=== PATIENT | female | born 1960 | race Hispanic/Latino ===

== ENCOUNTER 2022-12-19 11:46 | Inpatient (IN) | payer OTHER ==
[~2022-12-19] VITALS: Ht 162.6 cm; Wt 69.4 kg
[2022-12-19] VITALS (32 sets, daily range): BP systolic 72–169; BP diastolic 29–86
[2022-12-19] MEDS ORDERED: LIDOCAINE HCL 400MG/20ML VIAL ONE ×3 (12:23→18:52)
[2022-12-19] MEDS ORDERED: VERAPAMIL HCL 2.5 MG/ML VIAL ONE (12:24)
[2022-12-19] MEDS ORDERED: MIDAZOLAM HCL 1 MG/ML 2ML VIAL ONE ×2 (12:24→17:49)
[2022-12-19] MEDS ORDERED: FENTANYL CITRATE PF 50 MCG/1 ML 2ML VIAL ONE ×2 (12:24→17:50)
[2022-12-19] MEDS ORDERED: IOHEXOL 350 MG/ML 100ML INFUS..BTL IV ONE (12:24)
[2022-12-19] MEDS ORDERED: HEPARIN 10,000 UNIT/10ML (1,000 UNIT/ML) VIAL ONE (12:25)
[2022-12-19] MEDS ORDERED: NITROGLYCERIN 50MG VIAL ONE (12:25)
[2022-12-19] MEDS ORDERED: HEPARIN 25,000 UNITS/250ML D5W 250 ML IV ONE (13:16)
[2022-12-19] MEDS ORDERED: NITROGLYCERIN 1GM OINT 1 INCH/1GM TD ONE (13:20)
[2022-12-19] MEDS ORDERED: HEPARIN 25,000 UNITS/250ML D5W 250 ML IV SCH (13:30)
[2022-12-19] MEDS ORDERED: DEXTROSE 50%-WATER 50 ML DISP.SYRIN IV PRN (13:30)
[2022-12-19] MEDS ORDERED: GLUCAGON 1MG KIT 1 MG ML IM PRN (13:30)
[2022-12-19] MEDS ORDERED: ACETAMINOPHEN 500 MG TABLET PO PRN (14:30)
[2022-12-19] MEDS ORDERED: MORPHINE 2 MG SYG IVP PRN (14:30)
[2022-12-19] MEDS ORDERED: EMPA25TA PO (15:13)
[2022-12-19] MEDS ORDERED: METO-391 PO (15:13)
[2022-12-19] MEDS ORDERED: LORA10TA7 PO (15:14)
[2022-12-19] MEDS: INSULIN HUMULIN R 100 UNIT/ML 3ML SQ SCH ×2 (16:30→23:34)
[2022-12-19] MEDS ORDERED: 0.9%NACL 1000ML 1,000 ML IV SCH (17:00)
[2022-12-19 17:25] LABS: BASOPHILS % (AUTO) 0.2 % (0.0-5.0); EOSINOPHILS % (AUTO) 0.2 % (0.0-8.0); HEMATOCRIT 40.7 % (36-48); MEAN CORPUSCULAR HEMOGLOBIN 28.9 pg (27.0-33.0); MEAN CORPUSCULAR HGB CONC 33.2 g/dL (32.0-36.0); MEAN CORPUSCULAR VOLUME 87.2 fL (79-99); MONOCYTES % (AUTO) 2.3 % (3.0-13.0); NEUTROPHILS % (AUTO) 90.8 % (40.0-77.0); PLATELET COUNT (AUTO) 245 K/uL (130-400); RED BLOOD CELL COUNT(AUTO) 4.67 MIL/uL (4.00-5.50); RED CELL DISTRIBUTION WIDTH 13.9 % (11.0-15.5); WHITE BLOOD COUNT (AUTO) 12.4 K/uL (4.8-10.8)
[2022-12-19 17:30] LABS: CREATININE 0.6 mg/dL (0.5-1.5); POTASSIUM 3.9 mmol/L (3.5-5.1)
[2022-12-19 17:31] LABS: PROTHROMBIN TIME 10.9 SEC (9.6-11.6)
[2022-12-19 17:34] LABS: ALBUMIN 3.4 g/dL (3.5-5.0); MAGNESIUM 1.9 mg/dL (1.80-2.40); TOTAL PROTEIN, SERUM 7.1 g/dL (6.0-8.3)
[2022-12-19] MEDS: ONDANSETRON 4MG INJ IVP PRN (17:50)
[2022-12-19 17:51] LABS: PARTIAL THROMBOPLASTIN TIME 107.9 SEC (26.3-35.5)
[2022-12-19] MEDS ORDERED: NITROGLYCERIN 1GM OINT 1 INCH/1GM TD SCH (20:00)
[2022-12-19] MEDS ORDERED: PROMETHAZINE HCL 25 MG/ML 1ML AMPULE IM ONE (23:00)
[2022-12-19 23:53] LABS: CREATININE 0.7 mg/dL (0.5-1.5); MAGNESIUM 2.1 mg/dL (1.80-2.40); PHOSPHORUS 4.2 mg/dL (2.5-4.9); POTASSIUM 3.9 mmol/L (3.5-5.1)
[2022-12-20] VITALS (61 sets, daily range): BP systolic 93–175; BP diastolic 37–87
[2022-12-20] MEDS: ATORVASTATIN 40 MG TABLET PO SCH ×2 (01:18→20:30)
[2022-12-20] MEDS: FAMOTIDINE 20MG TAB PO SCH ×3 (01:18→20:30)
[2022-12-20] MEDS: METOPROLOL TARTRATE 25 MG TAB PO SCH ×3 (01:18→20:30)
[2022-12-20] MEDS: ONDANSETRON 4MG INJ IVP PRN (01:18)
[2022-12-20 01:35] LABS: ABG BASE EXCESS -13.4 mmol/L (-2.0-3.0); ABG HCO3 10.4 mmol/L (21.0-28.0); ABG OXYGEN SATURATION 96.8 % (95.0-99.0); ABG PCO2 21 mmHg (32-45)
[2022-12-20] MEDS ORDERED: 0.9%NACL 1000ML 1,000 ML IV SCH (02:00)
[2022-12-20] MEDS ORDERED: INSULIN REGULAR, HUMAN 3ML 100 UNIT in 0.9%NACL 100ML 100 ML IV SCH ×2 (02:00)
[2022-12-20] MEDS ORDERED: PROMETHAZINE HCL 25 MG/ML 1ML AMPULE IM ONE (02:00)
[2022-12-20] MEDS ORDERED: POTASSIUM CHLORIDE 10% ELIXIR 20 MEQ/15 ML UDCUP PO PRN (02:00)
[2022-12-20] MEDS ORDERED: D5W-1/2 NS/20MEQ KCL 1,000 ML IV SCH (02:00)
[2022-12-20] MEDS ORDERED: MAGNESIUM 2GM PREMIX 50ML 50 ML IV PRN (02:00)
[2022-12-20] MEDS ORDERED: SIMETHICONE 80 MG TAB.CHEW ONE (02:53)
[2022-12-20] MEDS: POTASSIUM CHLORIDE 20MEQ/100ML 100 ML IV PRN ×2 (03:58→09:37)
[2022-12-20] MEDS: DEXTROSE 5 %-0.45 % NACL 1,000 ML IV SCH ×2 (04:18→23:49)
[2022-12-20] MEDS: INSULIN HUMULIN R 100 UNIT/ML 3ML SQ SCH ×4 (05:05→21:00)
[2022-12-20 05:21] LABS: HEMATOCRIT 38.9 % (36-48); MEAN CORPUSCULAR HEMOGLOBIN 28.7 pg (27.0-33.0); MEAN CORPUSCULAR HGB CONC 33.9 g/dL (32.0-36.0); MEAN CORPUSCULAR VOLUME 84.6 fL (79-99); RED BLOOD CELL COUNT(AUTO) 4.6 MIL/uL (4.00-5.50); RED CELL DISTRIBUTION WIDTH 14.1 % (11.0-15.5); WHITE BLOOD COUNT (AUTO) 10.3 K/uL (4.8-10.8)
[2022-12-20 05:28] LABS: HEMOGLOBIN A1C 9.2 % (4.0-6.0)
[2022-12-20 06:05] LABS: BILIRUBIN,DIRECT 0.1 mg/dL (0.0-0.3); CREATININE 0.8 mg/dL (0.5-1.5); MAGNESIUM 1.9 mg/dL (1.80-2.40); POTASSIUM 3.4 mmol/L (3.5-5.1); THYROID STIMULATING HORMONE 1.34 uIU/mL (0.36-3.74); TOTAL PROTEIN, SERUM 6.9 g/dL (6.0-8.3)
[2022-12-20 06:12] LABS: ALBUMIN 3.3 g/dL (3.5-5.0)
[2022-12-20 08:42] LABS: CREATININE 0.6 mg/dL (0.5-1.5); POTASSIUM 3.5 mmol/L (3.5-5.1)
[2022-12-20] MEDS ORDERED: CEFAZOLIN SODIUM 1 GM VIAL IVPB SCH (09:00)
[2022-12-20] MEDS ORDERED: ZOLPIDEM TARTRATE 5 MG TAB PO PRN (09:30)
[2022-12-20] MEDS: ASPIRIN 81MG CHEW TAB PO SCH (09:36)
[2022-12-20] MEDS: LISINOPRIL 5 MG TABLET PO SCH (11:04)
[2022-12-20] MEDS: FUROSEMIDE 20MG VIAL IV SCH ×2 (11:04→22:00)
[2022-12-20] MEDS: AMIODARONE 200 MG TABLET PO SCH ×2 (11:04→20:30)
[2022-12-20 12:24] LABS: CREATININE 0.7 mg/dL (0.5-1.5); POTASSIUM 3.9 mmol/L (3.5-5.1)
[2022-12-20 12:25] LABS: INR 0.96 (0.85-1.15); PROTHROMBIN TIME 10.5 SEC (9.6-11.6)
[2022-12-20 12:26] LABS: PARTIAL THROMBOPLASTIN TIME 59.6 SEC (26.3-35.5)
[2022-12-20] MEDS: INSULIN GLARGINE 100 UNITS/ML 10 ML VIAL SQ SCH ×2 (12:32→21:00)
[2022-12-20 13:24] LABS: APPEARANCE,URINE CLEAR (CLEAR); BILIRUBIN,URINE NEGATIVE (NEGATIVE); COLOR,URINE LIGHT-YELLOW (YELLOW); GLUCOSE, URINE (UA) >=1000 mg/dL (NEGATIVE); KETONES,URINE 150 mg/dL (NEGATIVE); LEUKOCYTE ESTERASE ,URINE NEGATIVE Leu/uL (NEGATIVE); NITRATE,URINE NEGATIVE (NEGATIVE); OCCULT BLOOD,URINE NEGATIVE (NEGATIVE); PROTEIN,URINE 20 mg/dL (NEGATIVE); UROBILINOGEN,URINE 0.2 mg/dL (0.2-1.0)
[2022-12-20 13:32] LABS: MUCUS,URINE RARE LPF (None Seen); RBC,URINE 0-1 /HPF (0-1); SQUAMOUS EPITHELIAL CELL,UR RARE /HPF (0-2)
[2022-12-20 16:15] LABS: ABG BASE EXCESS -9.5 mmol/L (-2.0-3.0); ABG HCO3 13.1 mmol/L (21.0-28.0); ABG OXYGEN SATURATION 96.8 % (95.0-99.0); ABG PCO2 22 mmHg (32-45)
[2022-12-20 16:27] LABS: CREATININE 0.7 mg/dL (0.5-1.5); MAGNESIUM 1.7 mg/dL (1.80-2.40); POTASSIUM 3.4 mmol/L (3.5-5.1)
[2022-12-20] MEDS: KCL 20 MEQ ERTAB PO PRN ×2 (16:31→17:19)
[2022-12-20 20:37] LABS: CREATININE 0.6 mg/dL (0.5-1.5); MAGNESIUM 2.6 mg/dL (1.80-2.40); POTASSIUM 3.8 mmol/L (3.5-5.1)
[2022-12-20] MEDS: KCL 20 MEQ ERTAB PO SCH (21:38)
[2022-12-21] VITALS (70 sets, daily range): BP systolic 84–257; BP diastolic 34–245
[2022-12-21] MEDS ORDERED: DEXTROSE 50%-WATER 50 ML DISP.SYRIN IV PRN ×2 (00:30→10:00)
[2022-12-21] MEDS ORDERED: GLUCAGON 1MG KIT 1 MG ML IM PRN ×2 (00:30→10:00)
[2022-12-21 00:56] LABS: CREATININE 0.8 mg/dL (0.5-1.5); MAGNESIUM 2.2 mg/dL (1.80-2.40); POTASSIUM 3.8 mmol/L (3.5-5.1)
[2022-12-21 05:04] LABS: HEMATOCRIT 36.7 % (36-48); MEAN CORPUSCULAR HEMOGLOBIN 28.5 pg (27.0-33.0); MEAN CORPUSCULAR VOLUME 86.6 fL (79-99); RED BLOOD CELL COUNT(AUTO) 4.24 MIL/uL (4.00-5.50); RED CELL DISTRIBUTION WIDTH 14.6 % (11.0-15.5)
[2022-12-21 05:17] LABS: ALBUMIN 2.9 g/dL (3.5-5.0); CREATININE 0.7 mg/dL (0.5-1.5); POTASSIUM 3.9 mmol/L (3.5-5.1); TOTAL PROTEIN, SERUM 6.3 g/dL (6.0-8.3)
[2022-12-21 05:22] LABS: INR 0.94 (0.85-1.15); PROTHROMBIN TIME 10.3 SEC (9.6-11.6)
[2022-12-21 05:24] LABS: PARTIAL THROMBOPLASTIN TIME 29.9 SEC (26.3-35.5)
[2022-12-21] MEDS ORDERED: NOREPINEPHRINE BITARTRATE 8 MG in DEXTROSE 5%-WATER 250 ML IV PRN (06:30)
[2022-12-21] MEDS ORDERED: EPINEPHRINE PF 1MG (1:1,000) 10 MG in 0.9% NACL 250ML 240 ML IV PRN ×2 (06:30→10:00)
[2022-12-21] MEDS ORDERED: AMINOCAPROIC ACID 5,000MG VIAL 15,000 MG in 0.9% NACL 500ML IV.SOLN 420 ML IV PRN (06:30)
[2022-12-21] MEDS ORDERED: CEFAZOLIN SODIUM 1 GM VIAL ONE ×2 (06:58→08:51)
[2022-12-21] MEDS ORDERED: PAPAVERINE HCL 30 MG/ML 2ML VIAL ONE (06:59)
[2022-12-21] MEDS ORDERED: NITROGLYCERIN 50MG/D5W 250ML 1 BOT ONE (07:02)
[2022-12-21] MEDS: INSULIN HUMULIN R 100 UNIT/ML 3ML SQ SCH (07:21)
[2022-12-21] MEDS: ASPIRIN 81MG CHEW TAB PO SCH (07:21)
[2022-12-21] MEDS: AMIODARONE 200 MG TABLET PO SCH ×2 (07:21→20:46)
[2022-12-21] MEDS: INSULIN GLARGINE 100 UNITS/ML 10 ML VIAL SQ SCH (07:21)
[2022-12-21] MEDS: KCL 20 MEQ ERTAB PO SCH (07:21)
[2022-12-21] MEDS: FAMOTIDINE 20MG TAB PO SCH ×2 (07:22→20:46)
[2022-12-21] MEDS: LISINOPRIL 5 MG TABLET PO SCH (07:22)
[2022-12-21] MEDS: FUROSEMIDE 20MG VIAL IV SCH (07:22)
[2022-12-21] MEDS: METOPROLOL TARTRATE 25 MG TAB PO SCH (07:35)
[2022-12-21] MEDS ORDERED: LIDOCAINE PF 100MG/5ML (2%) SYRINGE 5ML ONE (08:26)
[2022-12-21] MEDS ORDERED: AMINOCAPROIC ACID 5,000MG VIAL ONE (08:26)
[2022-12-21] MEDS ORDERED: HEPARIN 10,000 UNIT/10ML (1,000 UNIT/ML) VIAL ONE (08:26)
[2022-12-21] MEDS ORDERED: SODIUM BICARB 50MEQ 50ML VIAL 100 ML ONE (08:26)
[2022-12-21] MEDS ORDERED: PROTAMINE SULFATE 10 MG/ML 25ML VIAL IV ONE (08:26)
[2022-12-21] MEDS ORDERED: ESMOLOL HCL 10 MG/ML 10 ML VIAL ONE (08:26)
[2022-12-21] MEDS ORDERED: NOREPINEPHRINE BITARTRATE 1 MG/1 ML ML IV ONE (08:26)
[2022-12-21] MEDS ORDERED: EPINEPHRINE PF 1MG (1:1,000) 1 MG/ML AMP ONE (08:26)
[2022-12-21] MEDS ORDERED: KETAMINE 50MG/ML SYRINGE 50 MG/ML DISP.SYRIN ONE ×2 (08:27→09:48)
[2022-12-21] MEDS ORDERED: MIDAZOLAM HCL 1 MG/ML 2ML VIAL ONE (08:27)
[2022-12-21] MEDS ORDERED: ROCURONIUM 10MG/1ML SYR 10 MG/ML ML ONE (08:27)
[2022-12-21] MEDS ORDERED: FENTANYL CITRATE PF 50 MCG/1 ML 20ML VIAL IJ ONE (08:27)
[2022-12-21] MEDS ORDERED: PROPOFOL 10 MG/ML 20ML VIAL IV ONE (08:27)
[2022-12-21] MEDS: CEFAZOLIN SODIUM 1 GM VIAL IVPB SCH ×4 (08:30→22:09)
[2022-12-21 09:16] LABS: ABG BASE EXCESS -11.2 mmol/L (-2.0-3.0); ABG HCO3 14.8 mmol/L (21.0-28.0); ABG OXYGEN SATURATION 99.9 % (95.0-99.0); ABG PCO2 34 mmHg (32-45)
[2022-12-21] MEDS ORDERED: SODIUM BICARB 50MEQ 50ML VIAL 200 ML ONE (09:32)
[2022-12-21] MEDS ORDERED: ALBUMIN (HUMAN) 5% 250 ML IV PRN (10:00)
[2022-12-21] MEDS ORDERED: INSULIN REGULAR, HUMAN 3ML 100 UNIT in 0.9%NACL 100ML 99 ML IV SCH ×2 (10:00)
[2022-12-21] MEDS ORDERED: NITROGLYCERIN 50MG/D5W 250ML 250 BOT IV SCH (10:00)
[2022-12-21] MEDS ORDERED: MORPHINE 2 MG SYG IV PRN (10:00)
[2022-12-21] MEDS ORDERED: 0.9%NACL 10ML VIAL IVP PRN (10:00)
[2022-12-21] MEDS ORDERED: 0.9%NACL 1000ML 1,000 ML IV SCH (10:00)
[2022-12-21] MEDS ORDERED: PROPOFOL 1000 MG/100 ML 100 ML IV PRN (10:00)
[2022-12-21] MEDS ORDERED: NOREPINEPHRIN 4MG/NS 250ML 250 ML IV PRN (10:00)
[2022-12-21] MEDS ORDERED: MORPHINE 4 MG SYG IV PRN (10:00)
[2022-12-21] MEDS ORDERED: ACETAMINOPHEN 650 MG SUPPOSITORY RC PRN (10:00)
[2022-12-21] MEDS ORDERED: POTASSIUM PHOS 15 mMOL+NS250ML 250 ML IV PRN (10:00)
[2022-12-21] MEDS ORDERED: AMINOCAPROIC ACID 5,000MG VIAL 15,000 MG in 0.9% NACL 250ML 250 ML IV SCH (10:00)
[2022-12-21] MEDS ORDERED: LACTULOSE 20 GM/30 ML UDCUP PO PRN (10:00)
[2022-12-21] MEDS ORDERED: 0.9% NACL 500ML IV.SOLN 500 ML IV SCH (10:00)
[2022-12-21 10:05] LABS: ABG BASE EXCESS -1.7 mmol/L (-2.0-3.0); ABG HCO3 21.7 mmol/L (21.0-28.0); ABG OXYGEN SATURATION 99.5 % (95.0-99.0); ABG PCO2 32 mmHg (32-45)
[2022-12-21] MEDS ORDERED: PHENYLEPHRINE 100 MG/NS 250ML IV SCH ×2 (10:30)
[2022-12-21 11:10] LABS: ABG BASE EXCESS -7.9 mmol/L (-2.0-3.0); ABG HCO3 17.5 mmol/L (21.0-28.0); ABG OXYGEN SATURATION 99.6 % (95.0-99.0); ABG PCO2 35 mmHg (32-45)
[2022-12-21] MEDS ORDERED: SODIUM BICARB 50MEQ 50ML VIAL 150 ML ONE (11:11)
[2022-12-21 11:40] LABS: ABG BASE EXCESS 1.5 mmol/L (-2.0-3.0); ABG HCO3 26.6 mmol/L (21.0-28.0); ABG OXYGEN SATURATION 99.2 % (95.0-99.0); ABG PCO2 44 mmHg (32-45)
[2022-12-21] MEDS ORDERED: VASOPRESSIN 20 UNITS/ML 1ML VIAL ONE (11:46)
[2022-12-21 12:35] LABS: ABG BASE EXCESS -0.6 mmol/L (-2.0-3.0); ABG HCO3 22.8 mmol/L (21.0-28.0); ABG PCO2 33 mmHg (32-45)
[2022-12-21] MEDS: SODIUM BICARB 50MEQ 50ML VIAL IV PRN ×3 (12:36→15:06)
[2022-12-21] MEDS: POTASSIUM CHLORIDE 20MEQ/100ML 100 ML IV PRN ×6 (12:36→23:30)
[2022-12-21 12:39] LABS: HEMATOCRIT 28.9 % (36-48); MEAN CORPUSCULAR HEMOGLOBIN 29.1 pg (27.0-33.0); MEAN CORPUSCULAR HGB CONC 33.6 g/dL (32.0-36.0); MEAN CORPUSCULAR VOLUME 86.8 fL (79-99); RED BLOOD CELL COUNT(AUTO) 3.33 MIL/uL (4.00-5.50); RED CELL DISTRIBUTION WIDTH 14.6 % (11.0-15.5); WHITE BLOOD COUNT (AUTO) 11.7 K/uL (4.8-10.8)
[2022-12-21 12:51] LABS: INR 1.16 (0.85-1.15); PROTHROMBIN TIME 12.5 SEC (9.6-11.6)
[2022-12-21 12:52] LABS: CREATININE 0.6 mg/dL (0.5-1.5); MAGNESIUM 1.7 mg/dL (1.80-2.40); PHOSPHORUS 4.1 mg/dL (2.5-4.9); POTASSIUM 3.4 mmol/L (3.5-5.1)
[2022-12-21 12:53] LABS: PARTIAL THROMBOPLASTIN TIME 25.4 SEC (26.3-35.5)
[2022-12-21] MEDS: MAGNESIUM 2GM PREMIX 50ML 50 ML IV PRN ×2 (12:57→23:32)
[2022-12-21] MEDS: CALCIUM GLUC 1GM 1 GM in 0.9%NACL 50ML 50 ML IV PRN ×4 (13:22→17:49)
[2022-12-21 13:50] LABS: ABG BASE EXCESS -0.6 mmol/L (-2.0-3.0); ABG HCO3 22.9 mmol/L (21.0-28.0); ABG PCO2 34 mmHg (32-45)
[2022-12-21 15:01] LABS: ABG BASE EXCESS -2.7 mmol/L (-2.0-3.0); ABG HCO3 20.3 mmol/L (21.0-28.0); ABG OXYGEN SATURATION 98.2 % (95.0-99.0); ABG PCO2 30 mmHg (32-45)
[2022-12-21 15:53] LABS: ABG BASE EXCESS 3.4 mmol/L (-2.0-3.0); ABG HCO3 26.7 mmol/L (21.0-28.0); ABG OXYGEN SATURATION 98.4 % (95.0-99.0); ABG PCO2 36 mmHg (32-45)
[2022-12-21] MEDS: ONDANSETRON 4MG INJ IV PRN (16:52)
[2022-12-21] MEDS: TRAMADOL HCL 50 MG TABLET PO PRN ×2 (17:12→22:13)
[2022-12-21 17:47] LABS: ABG BASE EXCESS 1.3 mmol/L (-2.0-3.0); ABG HCO3 24.5 mmol/L (21.0-28.0); ABG OXYGEN SATURATION 97.9 % (95.0-99.0); ABG PCO2 34 mmHg (32-45)
[2022-12-21] MEDS: DOCUSATE SODIUM 100 MG CAP PO SCH (20:46)
[2022-12-21] MEDS: ATORVASTATIN 40 MG TABLET PO SCH (20:46)
[2022-12-21] MEDS ORDERED: FAMOTIDINE 20MG VIAL IV SCH (21:00)
[2022-12-21 23:15] LABS: CREATININE 0.6 mg/dL (0.5-1.5); MAGNESIUM 1.8 mg/dL (1.80-2.40); POTASSIUM 3.8 mmol/L (3.5-5.1)
[2022-12-22] VITALS (63 sets, daily range): BP systolic 88–135; BP diastolic 45–94
[2022-12-22 04:15] LABS: HEMATOCRIT 28.5 % (36-48); MEAN CORPUSCULAR HEMOGLOBIN 28.5 pg (27.0-33.0); MEAN CORPUSCULAR HGB CONC 32.3 g/dL (32.0-36.0); MEAN CORPUSCULAR VOLUME 88.2 fL (79-99); RED BLOOD CELL COUNT(AUTO) 3.23 MIL/uL (4.00-5.50); RED CELL DISTRIBUTION WIDTH 14.7 % (11.0-15.5); WHITE BLOOD COUNT (AUTO) 11.8 K/uL (4.8-10.8)
[2022-12-22 04:35] LABS: CREATININE 0.6 mg/dL (0.5-1.5); MAGNESIUM 2.1 mg/dL (1.80-2.40); PHOSPHORUS 2.9 mg/dL (2.5-4.9)
[2022-12-22 04:49] LABS: INR 1.04 (0.85-1.15); PROTHROMBIN TIME 11.3 SEC (9.6-11.6)
[2022-12-22 04:50] LABS: PARTIAL THROMBOPLASTIN TIME 29.9 SEC (26.3-35.5)
[2022-12-22] MEDS ORDERED: FUROSEMIDE 40MG VIAL IV ONE (05:00)
[2022-12-22] MEDS: CEFAZOLIN SODIUM 1 GM VIAL IVPB SCH (06:16)
[2022-12-22] MEDS: POTASSIUM CHLORIDE 20MEQ/100ML 100 ML IV PRN (06:17)
[2022-12-22] MEDS: CALCIUM GLUC 1GM 1 GM in 0.9%NACL 50ML 50 ML IV PRN (07:56)
[2022-12-22] MEDS: CLOPIDOGREL 75MG TAB PO SCH (09:46)
[2022-12-22] MEDS: ASPIRIN 81MG CHEW TAB PO SCH (09:46)
[2022-12-22] MEDS: DOCUSATE SODIUM 100 MG CAP PO SCH ×2 (09:46→20:27)
[2022-12-22] MEDS: FUROSEMIDE 20MG VIAL IV SCH ×2 (09:46→20:26)
[2022-12-22] MEDS: AMIODARONE 200 MG TABLET PO SCH ×2 (09:46→20:25)
[2022-12-22] MEDS: FAMOTIDINE 20MG TAB PO SCH ×2 (09:47→20:26)
[2022-12-22] MEDS: ONDANSETRON 4MG INJ IV PRN (11:12)
[2022-12-22] MEDS: MAGNESIUM HYDROXIDE 30 ML/UDCUP PO PRN (16:08)
[2022-12-22] MEDS: SIMETHICONE 80 MG TAB.CHEW PO PRN (16:08)
[2022-12-22] MEDS: TRAMADOL HCL 50 MG TABLET PO PRN ×2 (16:14→17:13)
[2022-12-22 16:16] LABS: HEMATOCRIT 21.7 % (36-48)
[2022-12-22] MEDS: ATORVASTATIN 40 MG TABLET PO SCH (20:25)
[2022-12-23] VITALS (52 sets, daily range): BP systolic 88–130; BP diastolic 51–86
[2022-12-23 00:49] LABS: HEMATOCRIT 30.9 % (36-48)
[2022-12-23 04:16] LABS: HEMATOCRIT 30.6 % (36-48); MEAN CORPUSCULAR HEMOGLOBIN 28.5 pg (27.0-33.0); MEAN CORPUSCULAR VOLUME 86.2 fL (79-99); RED BLOOD CELL COUNT(AUTO) 3.55 MIL/uL (4.00-5.50); RED CELL DISTRIBUTION WIDTH 15.1 % (11.0-15.5); WHITE BLOOD COUNT (AUTO) 11.5 K/uL (4.8-10.8)
[2022-12-23 04:30] LABS: CREATININE 0.6 mg/dL (0.5-1.5); POTASSIUM 3.5 mmol/L (3.5-5.1)
[2022-12-23] MEDS: POTASSIUM CHLORIDE 20MEQ/100ML 100 ML IV PRN ×4 (05:09→22:02)
[2022-12-23] MEDS: MAGNESIUM 2GM PREMIX 50ML 50 ML IV PRN ×2 (06:08→17:23)
[2022-12-23] MEDS: INSULIN HUMULIN R 100 UNIT/ML 3ML SQ SCH ×4 (07:30→21:00)
[2022-12-23] MEDS: DOCUSATE SODIUM 100 MG CAP PO SCH ×2 (08:15→20:50)
[2022-12-23] MEDS: ASPIRIN 81MG CHEW TAB PO SCH (08:16)
[2022-12-23] MEDS: FAMOTIDINE 20MG TAB PO SCH ×2 (08:16→20:50)
[2022-12-23] MEDS: AMIODARONE 200 MG TABLET PO SCH ×2 (08:16→20:50)
[2022-12-23] MEDS: ONDANSETRON 4MG INJ IV PRN (08:33)
[2022-12-23] MEDS ORDERED: FUROSEMIDE 20 MG TABLET PO SCH (09:00)
[2022-12-23] MEDS ORDERED: METOPROLOL TARTRATE 25 MG TAB PO SCH (09:00)
[2022-12-23] MEDS: KCL 20 MEQ ERTAB PO SCH (10:01)
[2022-12-23] MEDS: CLOPIDOGREL 75MG TAB PO SCH (10:02)
[2022-12-23] MEDS: FUROSEMIDE 20MG VIAL IV SCH ×2 (10:02→20:51)
[2022-12-23 16:57] LABS: MAGNESIUM 1.8 mg/dL (1.80-2.40); POTASSIUM 3.3 mmol/L (3.5-5.1)
[2022-12-23] MEDS: ATORVASTATIN 40 MG TABLET PO SCH (20:51)
[2022-12-23 21:37] LABS: HEMATOCRIT 32.2 % (36-48); MEAN CORPUSCULAR HEMOGLOBIN 28.5 pg (27.0-33.0); MEAN CORPUSCULAR HGB CONC 32.6 g/dL (32.0-36.0); MEAN CORPUSCULAR VOLUME 87.3 fL (79-99); RED BLOOD CELL COUNT(AUTO) 3.69 MIL/uL (4.00-5.50); RED CELL DISTRIBUTION WIDTH 15.7 % (11.0-15.5); WHITE BLOOD COUNT (AUTO) 11.9 K/uL (4.8-10.8)
[2022-12-23 21:47] LABS: CREATININE 0.9 mg/dL (0.5-1.5); MAGNESIUM 2.2 mg/dL (1.80-2.40); POTASSIUM 3.2 mmol/L (3.5-5.1)
[2022-12-24] VITALS (53 sets, daily range): BP systolic 94–135; BP diastolic 51–79
[2022-12-24] MEDS: POTASSIUM CHLORIDE 20MEQ/100ML 100 ML IV PRN ×5 (00:14→15:44)
[2022-12-24 04:07] LABS: HEMATOCRIT 29.5 % (36-48); MEAN CORPUSCULAR HEMOGLOBIN 28.7 pg (27.0-33.0); MEAN CORPUSCULAR HGB CONC 33.2 g/dL (32.0-36.0); MEAN CORPUSCULAR VOLUME 86.5 fL (79-99); RED BLOOD CELL COUNT(AUTO) 3.41 MIL/uL (4.00-5.50); RED CELL DISTRIBUTION WIDTH 15.4 % (11.0-15.5); WHITE BLOOD COUNT (AUTO) 10.8 K/uL (4.8-10.8)
[2022-12-24 04:15] LABS: CREATININE 0.9 mg/dL (0.5-1.5); MAGNESIUM 2.1 mg/dL (1.80-2.40); POTASSIUM 3.5 mmol/L (3.5-5.1)
[2022-12-24] MEDS: ONDANSETRON 4MG INJ IV PRN ×2 (06:43→14:43)
[2022-12-24] MEDS: ENOXAPARIN SODIUM 30 MG/0.3 ML SQ SCH ×2 (07:22→21:00)
[2022-12-24] MEDS: DOCUSATE SODIUM 100 MG CAP PO SCH ×2 (07:26→21:53)
[2022-12-24] MEDS: CLOPIDOGREL 75MG TAB PO SCH (07:26)
[2022-12-24] MEDS: FUROSEMIDE 20MG VIAL IV SCH ×2 (07:27→21:53)
[2022-12-24] MEDS: AMIODARONE 200 MG TABLET PO SCH ×2 (07:29→21:53)
[2022-12-24] MEDS: FAMOTIDINE 20MG TAB PO SCH ×2 (07:29→21:53)
[2022-12-24] MEDS: INSULIN HUMULIN R 100 UNIT/ML 3ML SQ SCH ×4 (07:30→21:00)
[2022-12-24] MEDS: ASPIRIN 81MG CHEW TAB PO SCH (07:30)
[2022-12-24] MEDS: KCL 20 MEQ ERTAB PO SCH (07:30)
[2022-12-24 07:37] LABS: ABG BASE EXCESS -11.2 mmol/L (-2.0-3.0); ABG HCO3 10.5 mmol/L (21.0-28.0); ABG PCO2 16 mmHg (32-45)
[2022-12-24] MEDS ORDERED: D5W-1/2 NS/20MEQ KCL 1,000 ML IV SCH (08:00)
[2022-12-24] MEDS ORDERED: INSULIN REGULAR, HUMAN 3ML 100 UNIT in 0.9%NACL 100ML 100 ML IV SCH ×2 (08:00)
[2022-12-24] MEDS ORDERED: MAGNESIUM 2GM PREMIX 50ML 50 ML IV SCH (08:00)
[2022-12-24] MEDS ORDERED: 0.9%NACL 1000ML 1,000 ML IV SCH (08:00)
[2022-12-24] MEDS ORDERED: POTASSIUM CHLORIDE 10MEQ/100ML 100 ML IV PRN (08:00)
[2022-12-24 09:24] LABS: CREATININE 0.8 mg/dL (0.5-1.5); POTASSIUM 3.7 mmol/L (3.5-5.1)
[2022-12-24] MEDS ORDERED: IOHEXOL 350 MG/ML 100ML INFUS..BTL IV ONE ×2 (11:27→12:39)
[2022-12-24 13:52] LABS: CREATININE 0.9 mg/dL (0.5-1.5)
[2022-12-24 13:59] LABS: POTASSIUM 2.9 mmol/L (3.5-5.1)
[2022-12-24 19:08] LABS: POTASSIUM 3.4 mmol/L (3.5-5.1)
[2022-12-24] MEDS ORDERED: DiphenhydrAMINE HCL 50 MG/ML VIAL IV PRN (19:30)
[2022-12-24] MEDS ORDERED: INSULIN GLARGINE 100 UNITS/ML 10 ML VIAL SQ SCH (21:00)
[2022-12-24] MEDS: TRAMADOL HCL 50 MG TABLET PO PRN (21:53)
[2022-12-24] MEDS: ATORVASTATIN 40 MG TABLET PO SCH (21:53)
[2022-12-25] VITALS (61 sets, daily range): BP systolic 92–138; BP diastolic 55–77
[2022-12-25 01:50] LABS: CREATININE 0.9 mg/dL (0.5-1.5); POTASSIUM 3.2 mmol/L (3.5-5.1)
[2022-12-25] MEDS: POTASSIUM CHLORIDE 20MEQ/100ML 100 ML IV PRN (03:57)
[2022-12-25 04:13] LABS: HEMATOCRIT 28.5 % (36-48); MEAN CORPUSCULAR HEMOGLOBIN 28.2 pg (27.0-33.0); MEAN CORPUSCULAR HGB CONC 33.7 g/dL (32.0-36.0); MEAN CORPUSCULAR VOLUME 83.8 fL (79-99); RED BLOOD CELL COUNT(AUTO) 3.4 MIL/uL (4.00-5.50)
[2022-12-25 04:30] LABS: ALBUMIN 1.9 g/dL (3.5-5.0); BILIRUBIN,DIRECT 0.5 mg/dL (0.0-0.3); CREATININE 0.9 mg/dL (0.5-1.5); MAGNESIUM 1.9 mg/dL (1.80-2.40); POTASSIUM 3.3 mmol/L (3.5-5.1); TOTAL PROTEIN, SERUM 5.6 g/dL (6.0-8.3)
[2022-12-25] MEDS: INSULIN HUMULIN R 100 UNIT/ML 3ML SQ SCH ×4 (07:30→21:00)
[2022-12-25] MEDS ORDERED: INSULIN GLARGINE 100 UNITS/ML 10 ML VIAL SQ ONE (08:00)
[2022-12-25] MEDS: AMIODARONE 200 MG TABLET PO SCH ×2 (08:37→21:28)
[2022-12-25] MEDS: DOCUSATE SODIUM 100 MG CAP PO SCH ×2 (08:37→21:29)
[2022-12-25] MEDS: FAMOTIDINE 20MG TAB PO SCH ×2 (08:38→21:28)
[2022-12-25] MEDS: CLOPIDOGREL 75MG TAB PO SCH (08:38)
[2022-12-25] MEDS: ASPIRIN 81MG CHEW TAB PO SCH (08:38)
[2022-12-25] MEDS: FUROSEMIDE 20MG VIAL IV SCH ×2 (08:39→21:29)
[2022-12-25] MEDS: ENOXAPARIN SODIUM 30 MG/0.3 ML SQ SCH ×2 (08:39→21:00)
[2022-12-25] MEDS: KCL 20 MEQ ERTAB PO SCH (08:39)
[2022-12-25 11:30] LABS: HEMATOCRIT 30.3 % (36-48)
[2022-12-25 11:44] LABS: CREATININE 0.7 mg/dL (0.5-1.5); POTASSIUM 4.1 mmol/L (3.5-5.1)
[2022-12-25] MEDS ORDERED: METOPROLOL TARTRATE 25 MG TAB PO ONE (13:00)
[2022-12-25] MEDS: ATORVASTATIN 40 MG TABLET PO SCH (21:28)
[2022-12-25] MEDS: METOPROLOL TARTRATE 25 MG TAB PO SCH (21:29)
[2022-12-25] MEDS: INSULIN GLARGINE 100 UNITS/ML 10 ML VIAL SQ SCH (21:47)
[2022-12-26] VITALS (7 sets, daily range): BP systolic 73–115; BP diastolic 45–66
[2022-12-26] MEDS: ACETAMINOPHEN 325 MG TAB PO PRN ×2 (03:14→11:31)
[2022-12-26 04:01] LABS: BASOPHILS % (AUTO) 0.1 % (0.0-5.0); EOSINOPHILS % (AUTO) 0.3 % (0.0-8.0); HEMATOCRIT 31.4 % (36-48); LYMPHOCYTES % (AUTO) 8.9 % (21.0-51.0); MEAN CORPUSCULAR HEMOGLOBIN 28.3 pg (27.0-33.0); MEAN CORPUSCULAR HGB CONC 33.4 g/dL (32.0-36.0); MEAN CORPUSCULAR VOLUME 84.6 fL (79-99); MONOCYTES % (AUTO) 10.3 % (3.0-13.0); NEUTROPHILS % (AUTO) 79.5 % (40.0-77.0); PLATELET COUNT (AUTO) 188 K/uL (130-400); RED BLOOD CELL COUNT(AUTO) 3.71 MIL/uL (4.00-5.50)
[2022-12-26 04:13] LABS: CREATININE 0.7 mg/dL (0.5-1.5); POTASSIUM 3.4 mmol/L (3.5-5.1)
[2022-12-26] MEDS: INSULIN HUMULIN R 100 UNIT/ML 3ML SQ SCH ×4 (05:30→21:00)
[2022-12-26] MEDS: INSULIN GLARGINE 100 UNITS/ML 10 ML VIAL SQ SCH ×2 (05:58→21:24)
[2022-12-26] MEDS: KCL 20 MEQ ERTAB PO PRN (05:59)
[2022-12-26] MEDS: ASPIRIN 81MG CHEW TAB PO SCH (07:48)
[2022-12-26] MEDS: FUROSEMIDE 20MG VIAL IV SCH ×2 (07:48→21:17)
[2022-12-26] MEDS: FAMOTIDINE 20MG TAB PO SCH ×2 (07:48→21:20)
[2022-12-26] MEDS: DOCUSATE SODIUM 100 MG CAP PO SCH ×2 (07:49→21:18)
[2022-12-26] MEDS: AMIODARONE 200 MG TABLET PO SCH ×2 (07:49→21:18)
[2022-12-26] MEDS: KCL 20 MEQ ERTAB PO SCH (07:49)
[2022-12-26] MEDS: ZOSYN 3.375GM +NS 50ML IVPB SCH ×2 (07:49→16:40)
[2022-12-26] MEDS: METOPROLOL TARTRATE 25 MG TAB PO SCH (07:50)
[2022-12-26] MEDS: CLOPIDOGREL 75MG TAB PO SCH (07:50)
[2022-12-26] MEDS: ENOXAPARIN SODIUM 30 MG/0.3 ML SQ SCH ×2 (07:50→21:20)
[2022-12-26] MEDS ORDERED: MIDODRINE HCL 5 MG TABLET ONE (13:01)
[2022-12-26] MEDS ORDERED: 0.9%NACL 100ML IV STA (13:16)
[2022-12-26] MEDS: MIDODRINE HCL 5 MG TABLET PO SCH ×3 (13:20→21:00)
[2022-12-26] MEDS: MAGNESIUM HYDROXIDE 30 ML/UDCUP PO PRN (16:40)
[2022-12-26] MEDS: SIMETHICONE 80 MG TAB.CHEW PO PRN (16:40)
[2022-12-26] MEDS: ATORVASTATIN 40 MG TABLET PO SCH (21:18)
[2022-12-27] MEDS: ZOSYN 3.375GM +NS 50ML IVPB SCH ×4 (00:26→23:01)
[2022-12-27 04:00] VITALS: BP 97/54
[2022-12-27 05:42] LABS: BASOPHILS % (AUTO) 0.2 % (0.0-5.0); EOSINOPHILS % (AUTO) 0.4 % (0.0-8.0); HEMATOCRIT 31.8 % (36-48); LYMPHOCYTES % (AUTO) 12.5 % (21.0-51.0); MEAN CORPUSCULAR HEMOGLOBIN 28.3 pg (27.0-33.0); MEAN CORPUSCULAR VOLUME 83.5 fL (79-99); MONOCYTES % (AUTO) 9.9 % (3.0-13.0); NEUTROPHILS % (AUTO) 75.8 % (40.0-77.0); PLATELET COUNT (AUTO) 242 K/uL (130-400); RED BLOOD CELL COUNT(AUTO) 3.81 MIL/uL (4.00-5.50)
[2022-12-27 06:10] LABS: ALBUMIN 1.7 g/dL (3.5-5.0); CREATININE 0.7 mg/dL (0.5-1.5); POTASSIUM 3.1 mmol/L (3.5-5.1); TOTAL PROTEIN, SERUM 6.1 g/dL (6.0-8.3)
[2022-12-27] MEDS: INSULIN HUMULIN R 100 UNIT/ML 3ML SQ SCH ×4 (06:10→19:48)
[2022-12-27] MEDS: KCL 20 MEQ ERTAB PO PRN (06:31)
[2022-12-27 06:48] LABS: CRP QUANTITATIVE 291.8 mg/L (0.00-9.0)
[2022-12-27] MEDS: INSULIN GLARGINE 100 UNITS/ML 10 ML VIAL SQ SCH ×2 (07:30→21:38)
[2022-12-27 08:20] VITALS: BP 99/53
[2022-12-27] MEDS: ENOXAPARIN SODIUM 30 MG/0.3 ML SQ SCH ×2 (08:28→21:37)
[2022-12-27] MEDS: CLOPIDOGREL 75MG TAB PO SCH (08:29)
[2022-12-27] MEDS: FUROSEMIDE 20MG VIAL IV SCH ×2 (08:29→21:26)
[2022-12-27] MEDS: DOCUSATE SODIUM 100 MG CAP PO SCH ×2 (08:29→21:00)
[2022-12-27] MEDS: KCL 20 MEQ ERTAB PO SCH (08:29)
[2022-12-27] MEDS: ASPIRIN 81MG CHEW TAB PO SCH (08:30)
[2022-12-27] MEDS: FAMOTIDINE 20MG TAB PO SCH ×2 (08:30→21:24)
[2022-12-27] MEDS: AMIODARONE 200 MG TABLET PO SCH ×2 (08:30→21:25)
[2022-12-27] MEDS: MIDODRINE HCL 5 MG TABLET PO SCH ×3 (08:30→21:24)
[2022-12-27 12:05] VITALS: BP 97/49
[2022-12-27 16:14] VITALS: BP 92/42
[2022-12-27 19:13] VITALS: BP 105/56
[2022-12-27] MEDS: ATORVASTATIN 40 MG TABLET PO SCH (21:24)
[2022-12-27 23:14] VITALS: BP 112/62
[2022-12-28 03:32] VITALS: BP 93/43
[2022-12-28 03:41] LABS: BASOPHILS % (AUTO) 0.1 % (0.0-5.0); EOSINOPHILS % (AUTO) 0.9 % (0.0-8.0); HEMATOCRIT 29.3 % (36-48); LYMPHOCYTES % (AUTO) 15.4 % (21.0-51.0); MEAN CORPUSCULAR HEMOGLOBIN 27.5 pg (27.0-33.0); MEAN CORPUSCULAR HGB CONC 33.4 g/dL (32.0-36.0); MEAN CORPUSCULAR VOLUME 82.3 fL (79-99); MONOCYTES % (AUTO) 10.9 % (3.0-13.0); NEUTROPHILS % (AUTO) 71.8 % (40.0-77.0); PLATELET COUNT (AUTO) 273 K/uL (130-400); RED BLOOD CELL COUNT(AUTO) 3.56 MIL/uL (4.00-5.50)
[2022-12-28 03:59] LABS: CREATININE 0.9 mg/dL (0.5-1.5); MAGNESIUM 1.8 mg/dL (1.80-2.40); PHOSPHORUS 1.8 mg/dL (2.5-4.9)
[2022-12-28 04:00] LABS: POTASSIUM 2.6 mmol/L (3.5-5.1)
[2022-12-28] MEDS: POTASSIUM CHLORIDE 10% ELIXIR 20 MEQ/15 ML UDCUP PO PRN ×2 (04:19→06:15)
[2022-12-28] MEDS: MAGNESIUM 2GM PREMIX 50ML 50 ML IV PRN (04:20)
[2022-12-28] MEDS: ZOSYN 3.375GM +NS 50ML IVPB SCH ×3 (05:52→23:47)
[2022-12-28] MEDS: INSULIN HUMULIN R 100 UNIT/ML 3ML SQ SCH ×4 (06:24→19:26)
[2022-12-28 08:30] VITALS: BP 97/42
[2022-12-28] MEDS: KCL 20 MEQ ERTAB PO SCH ×3 (09:00→11:09)
[2022-12-28] MEDS ORDERED: FUROSEMIDE 20 MG TABLET PO SCH (09:00)
[2022-12-28] MEDS ORDERED: ASPI-1005 PO (10:00)
[2022-12-28] MEDS ORDERED: CLOP-31 PO (10:00)
[2022-12-28] MEDS: FAMOTIDINE 20MG TAB PO SCH ×2 (10:15→21:24)
[2022-12-28] MEDS: ASPIRIN 81MG CHEW TAB PO SCH (10:15)
[2022-12-28] MEDS: CLOPIDOGREL 75MG TAB PO SCH (10:15)
[2022-12-28] MEDS: DOCUSATE SODIUM 100 MG CAP PO SCH ×2 (10:15→21:24)
[2022-12-28] MEDS: ENOXAPARIN SODIUM 30 MG/0.3 ML SQ SCH ×2 (10:16→21:25)
[2022-12-28 12:15] VITALS: BP 96/54
[2022-12-28 12:23] LABS: CREATININE 0.8 mg/dL (0.5-1.5); POTASSIUM 3.6 mmol/L (3.5-5.1)
[2022-12-28] MEDS: KCL 20 MEQ ERTAB PO PRN ×2 (16:21→21:24)
[2022-12-28 16:36] VITALS: BP 96/52
[2022-12-28 19:01] VITALS: BP 114/65
[2022-12-28] MEDS: ATORVASTATIN 40 MG TABLET PO SCH (21:24)
[2022-12-28] MEDS: INSULIN GLARGINE 100 UNITS/ML 10 ML VIAL SQ SCH (21:34)
[2022-12-28 23:22] VITALS: BP 105/54
[2022-12-29] VITALS (7 sets, daily range): BP systolic 93–118; BP diastolic 53–68
[2022-12-29] MEDS: SIMETHICONE 80 MG TAB.CHEW PO PRN (02:40)
[2022-12-29 03:58] LABS: BASOPHILS % (AUTO) 0.1 % (0.0-5.0); EOSINOPHILS % (AUTO) 1.7 % (0.0-8.0); HEMATOCRIT 29.3 % (36-48); LYMPHOCYTES % (AUTO) 21.2 % (21.0-51.0); MEAN CORPUSCULAR HEMOGLOBIN 27.8 pg (27.0-33.0); MEAN CORPUSCULAR HGB CONC 33.1 g/dL (32.0-36.0); MONOCYTES % (AUTO) 10.3 % (3.0-13.0); NEUTROPHILS % (AUTO) 65.3 % (40.0-77.0); PLATELET COUNT (AUTO) 334 K/uL (130-400); RED BLOOD CELL COUNT(AUTO) 3.49 MIL/uL (4.00-5.50); WHITE BLOOD COUNT (AUTO) 7.3 K/uL (4.8-10.8)
[2022-12-29 04:02] LABS: CREATININE 0.8 mg/dL (0.5-1.5); MAGNESIUM 2.1 mg/dL (1.80-2.40)
[2022-12-29] MEDS: INSULIN HUMULIN R 100 UNIT/ML 3ML SQ SCH ×4 (05:55→21:10)
[2022-12-29] MEDS: ZOSYN 3.375GM +NS 50ML IVPB SCH ×3 (06:14→22:14)
[2022-12-29] MEDS: INSULIN GLARGINE 100 UNITS/ML 10 ML VIAL SQ SCH ×2 (07:30→21:09)
[2022-12-29] MEDS: ASPIRIN 81MG CHEW TAB PO SCH (08:27)
[2022-12-29] MEDS: FAMOTIDINE 20MG TAB PO SCH ×2 (08:27→20:24)
[2022-12-29] MEDS: CLOPIDOGREL 75MG TAB PO SCH (08:27)
[2022-12-29] MEDS: DOCUSATE SODIUM 100 MG CAP PO SCH ×2 (08:27→20:25)
[2022-12-29] MEDS: ENOXAPARIN SODIUM 30 MG/0.3 ML SQ SCH ×2 (08:28→20:26)
[2022-12-29] MEDS: KCL 20 MEQ ERTAB PO SCH (08:35)
[2022-12-29] MEDS: METOPROLOL TARTRATE 25 MG TAB PO SCH ×2 (11:13→20:25)
[2022-12-29] MEDS: LISINOPRIL 2.5 MG TABLET PO SCH (11:13)
[2022-12-29] MEDS ORDERED: LISI2.5T13 PO (11:45)
[2022-12-29] MEDS ORDERED: ATOR40TA69 PO (11:45)
[2022-12-29] MEDS ORDERED: METO25TA6 PO (11:45)
[2022-12-29] MEDS: ATORVASTATIN 40 MG TABLET PO SCH (20:25)
[2022-12-30 03:49] LABS: BASOPHILS % (AUTO) 0.3 % (0.0-5.0); EOSINOPHILS % (AUTO) 1.5 % (0.0-8.0); HEMATOCRIT 28.9 % (36-48); LYMPHOCYTES % (AUTO) 17.8 % (21.0-51.0); MEAN CORPUSCULAR HEMOGLOBIN 27.7 pg (27.0-33.0); MEAN CORPUSCULAR HGB CONC 33.2 g/dL (32.0-36.0); MEAN CORPUSCULAR VOLUME 83.5 fL (79-99); MONOCYTES % (AUTO) 9.7 % (3.0-13.0); NEUTROPHILS % (AUTO) 69.7 % (40.0-77.0); PLATELET COUNT (AUTO) 352 K/uL (130-400); RED BLOOD CELL COUNT(AUTO) 3.46 MIL/uL (4.00-5.50); WHITE BLOOD COUNT (AUTO) 7.9 K/uL (4.8-10.8)
[2022-12-30 04:02] LABS: CREATININE 0.8 mg/dL (0.5-1.5); POTASSIUM 3.3 mmol/L (3.5-5.1)
[2022-12-30 04:23] VITALS: BP 111/61
[2022-12-30] MEDS: KCL 20 MEQ ERTAB PO PRN (04:59)
[2022-12-30] MEDS: ZOSYN 3.375GM +NS 50ML IVPB SCH (06:41)
[2022-12-30] MEDS: INSULIN HUMULIN R 100 UNIT/ML 3ML SQ SCH (06:41)
[2022-12-30] MEDS ORDERED: KCL 20 MEQ ERTAB PO SCH (07:00)
[2022-12-30 08:25] VITALS: BP 107/60
[2022-12-30] MEDS: FAMOTIDINE 20MG TAB PO SCH (08:52)
[2022-12-30] MEDS: ASPIRIN 81MG CHEW TAB PO SCH (08:53)
[2022-12-30] MEDS: LISINOPRIL 2.5 MG TABLET PO SCH (08:53)
[2022-12-30] MEDS: DOCUSATE SODIUM 100 MG CAP PO SCH (08:53)
[2022-12-30] MEDS: CLOPIDOGREL 75MG TAB PO SCH (08:53)
[2022-12-30] MEDS: METOPROLOL TARTRATE 25 MG TAB PO SCH (08:53)
[2022-12-30] MEDS: ENOXAPARIN SODIUM 30 MG/0.3 ML SQ SCH (08:54)
[2022-12-30] MEDS: KCL 20 MEQ ERTAB PO SCH (08:56)
[2022-12-30] MEDS: INSULIN GLARGINE 100 UNITS/ML 10 ML VIAL SQ SCH (08:56)
== END 2022-12-30 10:46 | disposition home or self-care (01) | DRG 233 ==
LOC: 2DH 12:20 → 2CH 16:20 → 2CV 12-21 08:31 → 2CH 12-22 19:18 → 2AH 12-25 16:57
PROVIDERS: ADMIT Internal Medicine; ATTEND Internal Medicine
PROC: 4A023N7 Measurement of Cardiac Sampling and Pressure, Left Heart, Percutaneous Approach (ICD-10-PCS; principal; 2022-12-19)
PROC: 5A02210 Assistance with Cardiac Output using Balloon Pump, Continuous (ICD-10-PCS; 2022-12-19)
PROC: B2111ZZ Fluoroscopy of Multiple Coronary Arteries using Low Osmolar Contrast (ICD-10-PCS; 2022-12-19)
PROC: 03HB33Z Insertion of Infusion Device into Right Radial Artery, Percutaneous Approach (ICD-10-PCS; 2022-12-19)
PROC: 30233N1 Transfusion of Nonautologous Red Blood Cells into Peripheral Vein, Percutaneous Approach (ICD-10-PCS; 2022-12-21)
PROC: 02100Z9 Bypass Coronary Artery, One Artery from Left Internal Mammary, Open Approach (ICD-10-PCS; 2022-12-21 08:25)
PROC: 0212093 Bypass Coronary Artery, Three Arteries from Coronary Artery with Autologous Venous Tissue, Open Approach (ICD-10-PCS; 2022-12-21 08:25)
PROC: 06BQ4ZZ Excision of Left Saphenous Vein, Percutaneous Endoscopic Approach (ICD-10-PCS; 2022-12-21 08:25)
DX: I25.110 Atherosclerotic heart disease of native coronary artery with unstable angina pectoris (principal); E11.10 Type 2 diabetes mellitus with ketoacidosis without coma; I21.4 Non-ST elevation (NSTEMI) myocardial infarction; Z20.822 Contact with and (suspected) exposure to COVID-19; R57.0 Cardiogenic shock; J96.90 Respiratory failure, unspecified, unspecified whether with hypoxia or hypercapnia; I50.43 Acute on chronic combined systolic (congestive) and diastolic (congestive) heart failure; I31.39 Other pericardial effusion (noninflammatory); E87.4 Mixed disorder of acid-base balance; I48.20 Chronic atrial fibrillation, unspecified; D62 Acute posthemorrhagic anemia; I11.0 Hypertensive heart disease with heart failure; G47.33 Obstructive sleep apnea (adult) (pediatric); I25.5 Ischemic cardiomyopathy; I48.0 Paroxysmal atrial fibrillation; E78.00 Pure hypercholesterolemia, unspecified; I25.2 Old myocardial infarction; Z79.01 Long term (current) use of anticoagulants; Z79.4 Long term (current) use of insulin; Z79.82 Long term (current) use of aspirin; Z79.899 Other long term (current) drug therapy; Z82.49 Family history of ischemic heart disease and other diseases of the circulatory system; Z91.148 Patient's other noncompliance with medication regimen for other reason; Z91.199 Patient's noncompliance with other medical treatment and regimen due to unspecified reason; Z95.1 Presence of aortocoronary bypass graft
CPT/HCPCS: 33967; 36415; 36600; 71045; 71275; 74018; 76775; 80048; 80053; 80061; 80076; 81001; 82010; 82306; 82330; 82435; 82550; 82803; 82947; 82948; 83036; 83605; 83735; 83880; 84100; 84132; 84145; 84295; 84443; 85014; 85018; 85025; 85027; 85347; 85610; 85651; 85730; 86140; 86850; 86900; 86901; 86923; 87040; 87635; 87641; 93005; 93306; 93308; 93312; 93458; 93880; 94002; 94010; 94760; 97039; 99156; 99157; A4357; A7048; C1769; G0378; J0171; J0610; J0690; J1200; J1644; J1650; J1815; J1940; J2001; J2250; J2370; J2405; J2440; J2543; J2550; J2704; J2720; J3010; J3475; J3480; J3490; J7030; J7040; J7050; J7070; P9016; P9034; Q9967

== ENCOUNTER 2023-01-02 23:51 | Inpatient (IN) | payer OTHER ==
[~2023-01-02] VITALS: Ht 162.6 cm; Wt 62.1 kg
[~2023-01-02 23:51] MED LIST: ASPI-1005 PO; ATOR40TA69 PO; CLOP-31 PO; LISI2.5T13 PO; LORA10TA7 PO; METO25TA6 PO
[2023-01-03 00:09] LABS: BASOPHILS % (AUTO) 0.2 % (0.0-5.0); EOSINOPHILS % (AUTO) 0.7 % (0.0-8.0); LYMPHOCYTES % (AUTO) 7.6 % (21.0-51.0); MEAN CORPUSCULAR HEMOGLOBIN 27.7 pg (27.0-33.0); MEAN CORPUSCULAR HGB CONC 32.8 g/dL (32.0-36.0); MEAN CORPUSCULAR VOLUME 84.5 fL (79-99); MONOCYTES % (AUTO) 4.1 % (3.0-13.0); NEUTROPHILS % (AUTO) 86.3 % (40.0-77.0); PLATELET COUNT (AUTO) 448 K/uL (130-400); RED BLOOD CELL COUNT(AUTO) 3.43 MIL/uL (4.00-5.50); WHITE BLOOD COUNT (AUTO) 10.5 K/uL (4.8-10.8)
[2023-01-03 00:18] LABS: CREATININE 0.7 mg/dL (0.5-1.5); POTASSIUM 4.5 mmol/L (3.5-5.1)
[2023-01-03 00:23] LABS: ALBUMIN 2.4 g/dL (3.5-5.0); TOTAL PROTEIN, SERUM 6.9 g/dL (6.0-8.3)
[2023-01-03 00:45] LABS: APPEARANCE,URINE CLEAR (CLEAR); BILIRUBIN,URINE NEGATIVE (NEGATIVE); COLOR,URINE COLORLESS (YELLOW); GLUCOSE, URINE (UA) >=1000 mg/dL (NEGATIVE); KETONES,URINE 5 mg/dL (NEGATIVE); LEUKOCYTE ESTERASE ,URINE NEGATIVE Leu/uL (NEGATIVE); NITRATE,URINE NEGATIVE (NEGATIVE); OCCULT BLOOD,URINE NEGATIVE (NEGATIVE); PH,URINE 6.5 (5.0-8.0); PROTEIN,URINE NEGATIVE (NEGATIVE); UROBILINOGEN,URINE 0.2 mg/dL (0.2-1.0)
[2023-01-03 00:50] LABS: RBC,URINE 0-1 /HPF (0-1); SQUAMOUS EPITHELIAL CELL,UR RARE /HPF (0-2)
[2023-01-03] MEDS ORDERED: MORPHINE 2 MG SYG IVP ONE (01:30)
[2023-01-03] MEDS ORDERED: POTASSIUM CHLORIDE 20MEQ/100ML 100 ML IV PRN (02:00)
[2023-01-03] MEDS ORDERED: MORPHINE 2 MG SYG IV PRN (02:00)
[2023-01-03] MEDS ORDERED: ASPIRIN 81MG CHEW TAB PO ONE (02:00)
[2023-01-03] MEDS ORDERED: MORPHINE 4 MG SYG IV PRN (02:00)
[2023-01-03] MEDS ORDERED: NITROGLYCERIN 0.4 MG SL TAB SL PRN (02:00)
[2023-01-03] MEDS ORDERED: POTASSIUM CHLORIDE 10% ELIXIR 20 MEQ/15 ML UDCUP PO PRN (02:00)
[2023-01-03] MEDS ORDERED: MAGNESIUM 2GM PREMIX 50ML 50 ML IV PRN (02:00)
[2023-01-03] MEDS ORDERED: KCL 20 MEQ ERTAB PO PRN (02:00)
[2023-01-03] MEDS ORDERED: ACETAMINOPHEN 325 MG TAB PO PRN ×2 (02:00)
[2023-01-03 02:27] LABS: INR 0.96 (0.85-1.15); PROTHROMBIN TIME 10.5 SEC (9.6-11.6)
[2023-01-03 02:28] LABS: PARTIAL THROMBOPLASTIN TIME 25.8 SEC (26.3-35.5)
[2023-01-03] MEDS ORDERED: HEPARIN 25,000 UNITS/250ML D5W 250 ML IV SCH (02:30)
[2023-01-03] MEDS ORDERED: LORATADINE 10 MG TABLET PO PRN (02:30)
[2023-01-03] MEDS ORDERED: LIDOCAINE HCL 2% VISCOUS 15 ML UDCUP PO ONE (03:00)
[2023-01-03] MEDS ORDERED: MAG/ALUM/SIMETH 30 ML UDCUP PO ONE (03:00)
[2023-01-03] MEDS: DICYCLOMINE HCL 10 MG/5 ML ML PO SCH (03:11)
[2023-01-03 03:30] VITALS: BP 111/85
[2023-01-03 05:58] LABS: MAGNESIUM 1.9 mg/dL (1.80-2.40); PHOSPHORUS 3.4 mg/dL (2.5-4.9)
[2023-01-03] MEDS: INSULIN HUMULIN R 100 UNIT/ML 3ML SQ SCH ×2 (06:08→11:30)
[2023-01-03 08:03] VITALS: BP 112/73
[2023-01-03] MEDS: ASPIRIN 81MG CHEW TAB PO SCH (09:02)
[2023-01-03] MEDS: LISINOPRIL 2.5 MG TABLET PO SCH (09:02)
[2023-01-03] MEDS: FAMOTIDINE 20MG TAB PO SCH (09:03)
[2023-01-03] MEDS: ENOXAPARIN SODIUM 40 MG/0.4 ML SYRINGE SQ SCH (09:03)
[2023-01-03] MEDS: METOPROLOL TARTRATE 25 MG TAB PO SCH ×2 (09:03→21:15)
[2023-01-03] MEDS: CLOPIDOGREL 75MG TAB PO SCH (09:03)
[2023-01-03] MEDS: FUROSEMIDE 20MG VIAL IV SCH ×2 (11:35→23:38)
[2023-01-03 12:33] VITALS: BP 103/65
[2023-01-03 17:00] VITALS: BP 115/72
[2023-01-03 20:00] VITALS: BP 98/60
[2023-01-03] MEDS: ATORVASTATIN 40 MG TABLET PO SCH (21:15)
[2023-01-03 23:43] VITALS: BP 91/58
[2023-01-04] MEDS: DICYCLOMINE HCL 10 MG/5 ML ML PO SCH (03:00)
[2023-01-04 03:48] VITALS: BP 98/59
[2023-01-04 04:47] LABS: BASOPHILS % (AUTO) 0.4 % (0.0-5.0); EOSINOPHILS % (AUTO) 2.8 % (0.0-8.0); LYMPHOCYTES % (AUTO) 18.8 % (21.0-51.0); MEAN CORPUSCULAR HEMOGLOBIN 27.8 pg (27.0-33.0); MEAN CORPUSCULAR HGB CONC 32.3 g/dL (32.0-36.0); MEAN CORPUSCULAR VOLUME 86.1 fL (79-99); MONOCYTES % (AUTO) 6.1 % (3.0-13.0); NEUTROPHILS % (AUTO) 71.1 % (40.0-77.0); PLATELET COUNT (AUTO) 483 K/uL (130-400); RED CELL DISTRIBUTION WIDTH 15.2 % (11.0-15.5); WHITE BLOOD COUNT (AUTO) 7.1 K/uL (4.8-10.8)
[2023-01-04 04:59] LABS: ALBUMIN 2.4 g/dL (3.5-5.0); CREATININE 0.7 mg/dL (0.5-1.5); POTASSIUM 3.8 mmol/L (3.5-5.1)
[2023-01-04 08:00] VITALS: BP 136/54
[2023-01-04] MEDS ORDERED: GLUCAGON 1MG KIT 1 MG ML IM PRN (08:30)
[2023-01-04] MEDS ORDERED: DEXTROSE 50%-WATER 50 ML DISP.SYRIN IV PRN (08:30)
[2023-01-04] MEDS: METOPROLOL TARTRATE 25 MG TAB PO SCH ×2 (09:03→21:57)
[2023-01-04] MEDS: ASPIRIN 81MG CHEW TAB PO SCH (09:04)
[2023-01-04] MEDS: LISINOPRIL 2.5 MG TABLET PO SCH (09:04)
[2023-01-04] MEDS: CLOPIDOGREL 75MG TAB PO SCH (09:04)
[2023-01-04] MEDS: FAMOTIDINE 20MG TAB PO SCH (09:04)
[2023-01-04] MEDS: ENOXAPARIN SODIUM 40 MG/0.4 ML SYRINGE SQ SCH (09:05)
[2023-01-04 12:00] VITALS: BP 97/47
[2023-01-04] MEDS: INSULIN HUMULIN R 100 UNIT/ML 3ML SQ SCH ×5 (12:08→22:04)
[2023-01-04] MEDS: FUROSEMIDE 20MG VIAL IV SCH ×2 (12:10→23:27)
[2023-01-04 15:30] VITALS: BP 111/64
[2023-01-04] MEDS: ONDANSETRON 4MG INJ IV PRN (17:05)
[2023-01-04 20:03] VITALS: BP 95/50
[2023-01-04] MEDS: ATORVASTATIN 40 MG TABLET PO SCH (21:56)
[2023-01-04] MEDS: INSULIN GLARGINE 100 UNITS/ML 10 ML VIAL SQ SCH (22:04)
[2023-01-05] VITALS (7 sets, daily range): BP systolic 95–138; BP diastolic 56–82
[2023-01-05] MEDS: DICYCLOMINE HCL 10 MG/5 ML ML PO SCH ×2 (03:00→19:56)
[2023-01-05] MEDS: INSULIN HUMULIN R 100 UNIT/ML 3ML SQ SCH ×7 (05:44→22:24)
[2023-01-05] MEDS: ONDANSETRON 4MG INJ IV PRN (05:46)
[2023-01-05 06:03] LABS: BASOPHILS % (AUTO) 0.3 % (0.0-5.0); EOSINOPHILS % (AUTO) 3.6 % (0.0-8.0); HEMATOCRIT 31.8 % (36-48); LYMPHOCYTES % (AUTO) 20.9 % (21.0-51.0); MEAN CORPUSCULAR HEMOGLOBIN 27.6 pg (27.0-33.0); MEAN CORPUSCULAR HGB CONC 32.7 g/dL (32.0-36.0); MEAN CORPUSCULAR VOLUME 84.4 fL (79-99); MONOCYTES % (AUTO) 5.7 % (3.0-13.0); PLATELET COUNT (AUTO) 483 K/uL (130-400); RED BLOOD CELL COUNT(AUTO) 3.77 MIL/uL (4.00-5.50); RED CELL DISTRIBUTION WIDTH 15.3 % (11.0-15.5); WHITE BLOOD COUNT (AUTO) 6.5 K/uL (4.8-10.8)
[2023-01-05 06:31] LABS: ALBUMIN 2.3 g/dL (3.5-5.0); CREATININE 0.7 mg/dL (0.5-1.5); TOTAL PROTEIN, SERUM 7.1 g/dL (6.0-8.3)
[2023-01-05 06:55] LABS: B-TYPE NATRIURETIC PEPTIDE 638 pg/mL (0-100)
[2023-01-05] MEDS: ENOXAPARIN SODIUM 40 MG/0.4 ML SYRINGE SQ SCH (09:39)
[2023-01-05] MEDS: CLOPIDOGREL 75MG TAB PO SCH (09:40)
[2023-01-05] MEDS: ASPIRIN 81MG CHEW TAB PO SCH (09:40)
[2023-01-05] MEDS: METOPROLOL TARTRATE 25 MG TAB PO SCH ×2 (09:41→22:17)
[2023-01-05] MEDS ORDERED: MAG/ALUM/SIMETH 30 ML UDCUP PO PRN (10:00)
[2023-01-05] MEDS: FUROSEMIDE 20MG VIAL IV SCH (10:32)
[2023-01-05] MEDS: FAMOTIDINE 20MG TAB PO SCH (22:17)
[2023-01-05] MEDS: ATORVASTATIN 40 MG TABLET PO SCH (22:17)
[2023-01-05] MEDS: INSULIN GLARGINE 100 UNITS/ML 10 ML VIAL SQ SCH (22:24)
[2023-01-06 03:37] VITALS: BP 104/66
[2023-01-06] MEDS: INSULIN HUMULIN R 100 UNIT/ML 3ML SQ SCH ×2 (05:39→06:38)
[2023-01-06 07:50] LABS: HEMATOCRIT 31.3 % (36-48); MEAN CORPUSCULAR HEMOGLOBIN 27.9 pg (27.0-33.0); MEAN CORPUSCULAR HGB CONC 32.3 g/dL (32.0-36.0); MEAN CORPUSCULAR VOLUME 86.5 fL (79-99); RED BLOOD CELL COUNT(AUTO) 3.62 MIL/uL (4.00-5.50); RED CELL DISTRIBUTION WIDTH 15.3 % (11.0-15.5); WHITE BLOOD COUNT (AUTO) 5.2 K/uL (4.8-10.8)
[2023-01-06 07:58] LABS: CREATININE 0.6 mg/dL (0.5-1.5); POTASSIUM 3.9 mmol/L (3.5-5.1)
[2023-01-06 08:05] VITALS: BP 100/58
[2023-01-06] MEDS: ASPIRIN 81MG CHEW TAB PO SCH (08:23)
[2023-01-06] MEDS: FAMOTIDINE 20MG TAB PO SCH (08:24)
[2023-01-06] MEDS: CLOPIDOGREL 75MG TAB PO SCH (08:25)
[2023-01-06] MEDS: METOPROLOL TARTRATE 25 MG TAB PO SCH (08:25)
[2023-01-06] MEDS: ENOXAPARIN SODIUM 40 MG/0.4 ML SYRINGE SQ SCH (08:27)
[2023-01-06] MEDS ORDERED: FUROSEMIDE 20 MG TABLET PO SCH (09:00)
[2023-01-06] MEDS ORDERED: EMPA25TA PO (09:27)
[2023-01-06] MEDS ORDERED: METO25TA6 PO (09:27)
[2023-01-06] MEDS ORDERED: FURO20TA4 PO (09:27)
== END 2023-01-06 11:10 | disposition home or self-care (01) | DRG 280 ==
LOC: EDH 23:51 → EDHIP 23:52 → 4DH 01-03 03:23
PROVIDERS: ADMIT Internal Medicine; ATTEND Internal Medicine
DX: I11.0 Hypertensive heart disease with heart failure (principal); I21.A1 Myocardial infarction type 2; I50.43 Acute on chronic combined systolic (congestive) and diastolic (congestive) heart failure; E11.65 Type 2 diabetes mellitus with hyperglycemia; I48.0 Paroxysmal atrial fibrillation; E78.00 Pure hypercholesterolemia, unspecified; K21.9 Gastro-esophageal reflux disease without esophagitis; Z79.82 Long term (current) use of aspirin; Z82.49 Family history of ischemic heart disease and other diseases of the circulatory system; I25.2 Old myocardial infarction; Z83.3 Family history of diabetes mellitus; Z86.73 Personal history of transient ischemic attack (TIA), and cerebral infarction without residual deficits; Z95.1 Presence of aortocoronary bypass graft; Z95.5 Presence of coronary angioplasty implant and graft
CPT/HCPCS: 36415; 71045; 80048; 80053; 81001; 82948; 83036; 83735; 83880; 84100; 84484; 85025; 85027; 85610; 85730; 86850; 86900; 86901; 93005; 99291; G0378; J1650; J1815; J1940; J2405; J3475